=== PATIENT | male | born 1940 | race Caucasian/White ===

== ENCOUNTER 2017-01-14 10:50 | Emergency (ER) ==
[2017-01-14 10:56] VITALS: BP 159/81
[2017-01-14] MEDS ORDERED: XYLOCAINE-MPF 1% INJ ONE (10:59)
--- NOTE | 2017-01-14 11:22 | PROVIDER DOCUMENTATION ---
HPI-Musculoskeletal Pain/Inj - GENERAL Chief Complaint: Extremity Injury Stated Complaint: LEFT PINKY INJURY Time Seen by Provider: 01/14/17 10:59 Source: patient - HX OF PRESENT ILLNESS-MUSKULOSKELTAL Nature of Presenting Problem: 76 y/o WM presents to the ED with c/o L pinky digit pain x 1 hour. Pt states that he hit it on the doorway, now appears to have dislocated. States pain 3/ 10. Denies any other sxs. Review of Systems - Adult - REVIEW OF SYSTEMS - ADULT Constitutional: reports: no symptoms reported. denies: chills, fever Eyes: reports: no symptoms reported. denies: blurred vision, double vision Ears, Nose, Mouth & Throat: reports: no symptoms reported. denies: ear pain, nose pain Cardiovascular: reports: no symptoms reported. denies: chest pain, palpitations Respiratory: reports: no symptoms reported. denies: dyspnea on exertion, shortness of breath Gastrointestinal: reports: no symptoms reported. denies: nausea, vomiting Genitourinary: reports: no symptoms reported. denies: dysuria, frequency Musculoskeletal: reports: see HPI, joint pain. denies: back pain, neck pain Integumentary: reports: no symptoms reported. denies: nail changes, rash Neurological: reports: no symptoms reported. denies: numbness, paresthesia Psychiatric: reports: no symptoms reported Endocrine: reports: no symptoms reported. denies: cold intolerance, heat intolerance Hematologic/Lymphatic: reports: no symptoms reported. denies: easy bruising, prolonged bleeding Allergic/Immunologic: reports: no symptoms reported All Other Systems: Reviewed and Negative Past History - Adult - PAST MEDICAL HISTORY-ADULT Review of Records: reports: Nursing Assessment Review, Medications Reviewed - SOCIAL HISTORY Smoking: denies Physical Exam-Injury Related - Physical Exam-Injury Related Initial Vital Signs Reviewed: Yes General Appearance: alert, mild distress Eyes: pink conjunctivae Head, Ears, Nose, Mouth & Throat: normocephalic/atraumatic Neck: normal inspection Respiratory: no respiratory distress Cardiovascular: normal peripheral pulses, regular rate, rhythm Peripheral Pulses: radial (R): 2+, radial (L): 2+ Back Exam: normal inspection Extremity: normal gait, normal capillary refill, deformity (L pinky digit at PIP ). negative: normal range of motion, abnormal NV exam, pulse deficit Integumentary: normal color, warm/dry, blanching Neurologic: negative: aphasia, sensory deficit Psych/Mental Status: normal mood/affect, normal thought content, normal thought process, oriented x 3 Progress - PLAN OF CARE/RESULTS Progress/Plan/Lab Results: Orders Category Date Time Status Finger Splint DIRECTED Care 01/14/17 11:41 Active FINGER(S)-LEFT [RAD] Stat Exams 01/14/17 10:57 Completed FINGER(S)-LEFT [RAD] Stat Exams 01/14/17 11:40 Completed Lidocaine 1% Pf [Xylocaine-Mpf 1%] Med 01/14/17 10:59 Discontinued 5 ml INJ NOW ONE Vital Signs Temp Pulse Resp BP Pulse Ox 01/14/17 10:53 97.8 F 68 18 159/81 98 No Known Allergies Allergy (Verified 01/14/17 11:06) Fenofibrate [Tricor] 145 mg PO DAILY 09/17/16 Olmesartan [Benicar] 20 mg PO DAILY 09/17/16 Franklin-3 Fatty Acids/Fish Oil [Fish Oil 1,000 mg Capsule] 1 each PO DAILY Naproxen 250 mg PO TID #30 tablet 01/14/17 Discussed wear of finger splint and f/u with pt. - XRAY 1 XRAY: Left XRAY Study: other (fingers) XRAY Interpretation: dislocation noted at PIP, possible avulsion fx 2 XRAY: Left XRAY Study: other (fingers) XRAY Interpretation: successful reduction Procedures - DISLOCATION REDUCTION Left Digit Other Location: pinky digit, PIP Time-Out Verification Completed?: Yes Pre-Procedure Neurovascular Exam: Intact Conscious Sedation: No Reduction Attempts: 1 Post Procedure Neurovascular Exam: Intact Post Reduction Film: Deformity Reduced Post Reduction Splint Applied?: Yes Procedure Comment: Pt tolerated well - ADDITIONAL PROCEDURES Additional Procedure: Digital Nerve Block Time-Out Verification Completed?: Yes Site Prep: Betadine Anesthetic: 1%, Lidocaine/Xylocaine Volume of Anesthetic (ml's): 5 (MC block-5th digit) Procedure Comment: Pt tolerated well Departure - Departure Time of Disposition Order: 12:02 DIAGNOSIS: Finger dislocation Qualifiers: Encounter type: initial encounter Qualified Code(s): S63.259A - Unspecified dislocation of unspecified finger, initial encounter Disposition: HOME 01 Certified Medical Emergency: Emergent Condition: Stable Additional Instructions: Take medications as directed. RICE as needed for pain/swelling. Follow up with orthopedics for further management. ED Follow Up Instructions: You have been treated by a care provider in the Emergency Department. These instructions are being provided to you so you can have an understanding of how to care for yourself upon discharge. Upon discharge from the Emergency Department, you are responsible for making arrangements for follow-up care by a physician of your choice. Take all prescribed medications as directed. Return to the Emergency Department immediately for any new or worsening symptoms. You may call the Physician Referral phone number at [phone] to obtain a list of Physicians who are taking new patients. Prescriptions: Naproxen 250 mg PO TID #30 tablet Referrals: Kati Mitchell MD [Primary Care Provider] - Alfonso Villalobos MD [STAFF PHYSICIAN] - Instructions: Finger Dislocation, [id number] Attestation - Physician/ GISELA Attestation Patient care was provided by Advanced Practice Provider:: Yes Advanced Practice Provider:: Mendy Sanches Advanced Practice Provider documentation review:: The Mid-level provider documentation, treatment plan and medical decision making was reviewed by the physician who agrees with all treatment and medical decision making by the MLP.
--- NOTE | 2017-01-14 12:58 | Diag Imaging Result Document ---
PROCEDURE NAME: FINGER(S)-LEFT - 01/14/2017 LEFT PEÑA, 2 VIEWS, AT 1156 HOURS: COMPARISON: 1123 hours. FINDINGS: There has been successful reduction of the dislocation. Alignment is now anatomic. IMPRESSION: No acute disease or complication.
--- NOTE | 2017-01-14 13:01 | Diag Imaging Result Document ---
PROCEDURE NAME: FINGER(S)-LEFT - 01/14/2017 LEFT PINKY, 3 VIEWS: COMPARISON: None. FINDINGS: There is dorsal dislocation of the pinky finger at the proximal interphalangeal joint. No obvious fracture. IMPRESSION: Pinky finger dislocation.
== END 2017-01-14 12:09 | disposition home or self-care (01) ==
LOC: ED 10:50
DX: S63.287A Dislocation of proximal interphalangeal joint of left little finger, initial encounter (principal); M79.645 Pain in left finger(s); W22.8XXA Striking against or struck by other objects, initial encounter; Z79.899 Other long term (current) drug therapy
CPT/HCPCS: 73140